=== PATIENT | male | born 1980 | race Two or more races ===

== ENCOUNTER 2017-07-21 19:21 | Emergency (ER) | payer OTHER ==
[~2017-07-21] VITALS: Ht 170.2 cm; Wt 73.5 kg
[2017-07-21] MEDS ORDERED: Ketorolac 30mg Inj IM ONE (19:45)
--- NOTE | 2017-07-21 19:47 | Emergency Room Report ---
History of Present Illness General Chief Complaint: Fever Source: Patient Present Illness HPI The patient is a 37-year-old male presenting for fever, chills, and cough since this morning. He states the symptoms have been getting progressively worse. He denies any known sick contacts or recent travel. He took a temperature at home which was 101F. He used Tylenol at home which did not help. He is now describing an 8/10 dull total body ache. he is also admitting to fatigue, chills, and myalgia. He did not have a flu shot this year. He denies any other symptoms including SOB, CP, abd pain, diarrhea Allergies: Coded Allergies: No Known Allergies (Unverified , 07/21/17) Patient History Past Medical History: see triage record Pertinent Family History: none Reviewed Nursing Documentation: PMH: Agreed, PSxH: Agreed Nursing Documentation-PMH Past Medical History: No Stated History Review of Systems All Other Systems: negative except mentioned in HPI Physical Exam Vital Signs Date Time Temp Pulse Resp B/P (MAP) Pulse Ox O2 Delivery O2 Flow Rate FiO2 07/21/17 19:28 101.3 98 18 104/67 99 Room Air Sp02 EP Interpretation: reviewed, normal General Appearance: no apparent distress, GCS 15, non-toxic, lethargic Head: normocephalic, atraumatic Eyes: bilateral eye normal inspection, bilateral eye PERRL ENT: hearing grossly normal, normal pharynx, no angioedema, normal voice Neck: full range of motion, supple/symm/no masses Respiratory: chest non-tender, lungs clear, normal breath sounds, no wheezing, speaking full sentences Cardiovascular #1: regular rate, rhythm, no edema Gastrointestinal: normal bowel sounds, non tender, soft, non-distended, no guarding, no rebound Musculoskeletal: back normal, gait/station normal, normal range of motion, non- tender Neurologic: alert, oriented x3, responsive, motor strength/tone normal, sensory intact, speech normal Psychiatric: judgement/insight normal, memory normal, mood/affect normal, no suicidal/homicidal ideation Skin: normal color, no rash, warm/dry, well hydrated Lymphatic: no adenopathy Medical Decision Making PA Attestation Dr. Lemus is my supervising physician. Patient management was discussed with my supervising physician Diagnostic Impression: Primary Impression: Flu-like symptoms ER Course The patient is a 37 old male presenting for flulike symptoms DDx considered but not limited to: influenza, pharyngitis, PNA, bronchitis, mononucleosis, among others PE: febrile. lethargic. HEENT unremarkable. No oropharynx erythema. No tonsillar edema. Lungs CTA bilat. CXR unremarkable Flu swab was ordered. The nurse was seen handing the swab for the patient to self administer and adequate depth not achieved. Result: negative. The patient was given Toradol and feels better. He will be treated with Tamiflu due to symptoms and he is given prescriptions for symptomatic treatment. He will FU with PMD. ER precautions given Microbiology Date/Time Source Procedure Growth Status 07/21/17 19:40 Nose Influenza Types A,B Antigen (ANÍBAL) - Final Complete Lab Results Impression Negative Chest X-Ray Diagnostic Results Chest X-Ray Diagnostic Results : Chest X-Ray Ordered: Yes # of Views/Limited/Complete: 1 View Indication: Other - cough PA Xray: Interpretation reviewed, by supervising MD, and agrees with findings. Interpretation: no consolidation, no effusion, no pneumothorax, no acute cardiopulmonary disease Impression: No acute disease Electronically Signed by: SANTOSH Hooker Scribe Text My and my supervising physician's interpretation of the chest xrays are there is no consolidation, no effusion, no acute cardiopulmonary disease, no pneumothorax Last Vital Signs Date Time Temp Pulse Resp B/P (MAP) Pulse Ox O2 Delivery O2 Flow Rate FiO2 07/21/17 19:28 101.3 98 18 104/67 99 Room Air Status: improved Disposition: HOME, SELF-CARE Condition: Improved Scripts Oseltamivir Phosphate (Tamiflu) 75 Mg Capsule 75 MG ORAL TWICE A DAY, #10 CAP Prov: VIPUL HOLLIS P.A. 07/21/17 Codeine/Promethazine Hcl* (PROMETHAZINE-CODEINE SYRUP*) 118 Ml Syrup 5 ML ORAL Q6H Y for For Cough, #118 ML 0 Refills Prov: VIPUL HOLLIS P.A. 07/21/17 Ibuprofen* (MOTRIN*) 600 Mg Tablet 600 MG ORAL Q8H Y for For Pain, #30 TAB 0 Refills Prov: VIPUL HOLLIS P.A. 07/21/17 VIPUL HOLLIS P.A. Jul 21, 2017 19:47
[2017-07-21] MEDS ORDERED: IBUPROFEN600 MG ORAL (20:30)
[2017-07-21] MEDS ORDERED: TAMIFLU75 MG ORAL (20:30)
[2017-07-21] MEDS ORDERED: PROMETHAZINE-C118 M1 ORAL (20:30)
[2017-07-21 20:37] VITALS: BP_SYST 104; BP_SYST 118; BP_DIAS 67; BP_DIAS 69
--- NOTE | 2017-07-22 10:45 | Diagnostic Imaging Report ---
Indication: COUGH Technique: One view of the chest Comparison: none Findings: Lungs and pleural spaces are clear. Heart size is normal. Impression: Negative
== END 2017-07-21 20:38 | disposition home or self-care (01) ==
LOC: EMR 20:25
DX: J11.1 Influenza due to unidentified influenza virus with other respiratory manifestations (principal)
CPT/HCPCS: 71010; 86710; 96372; 99284; J1885